=== PATIENT | female | born 1990 | race Caucasian/White ===

== ENCOUNTER 2017-06-13 17:23 | Emergency (ER) | payer SELFPAY ==
[2017-06-13 18:02] LABS: BILIRUBIN,URINE NEGATIVE (NEG); GLUCOSE,URINE NEGATIVE (NEG); NITRITE,URINE NEGATIVE (NEG); PH,URINE 7.5; PROTEIN,URINE NEGATIVE (NEG-TRACE); UROBILINOGEN,URINE 0.2 mg/dL (0.2 mg/dL)
[2017-06-13 18:12] LABS: BACTERIA,URINE FEW /HPF (0-FEW); RBC,URINE 0 /HPF (0-2); SQUAMOUS EPITHELIAL CELL,UR FEW /LPF; WBC,URINE 0 /HPF (0-4)
[2017-06-13 19:00] VITALS: BP 104/58
--- NOTE | 2017-06-13 20:34 | PHYS DOC ---
Past Medical History Past Medical History: No Pertinent History Past Surgical History: Oophorectomy, Tubal ligation, Other Additional Past Surgical Histo: ECTOPIC Alcohol Use: Occasionally Drug Use: None Adult General Chief Complaint Chief Complaint: TEST HPI HPI 27-year-old female with a prior history of 2 full-term deliveries as well as a prior ectopic which was treated surgically with unilateral salpingo- oophorectomy. Patient now presents to the emergency department because she was several days late for her menses., Which is unusual for her. Patient states he checked a home test that was positive twice that she came to the emergency department he only has one remaining fallopian tube and ovary by her description but that tube has a clamp on it from ligation. Patient's amount of bleeding and crampy pain is unremarkable however she is concerned about the positive test. Fevers chills sweats or shaking chills. Normal bowel bladder habits. No vaginal discharge other than mild bleeding consistent with menses, which is now resolved. Review of Systems Review of Systems Constitutional: Denies fever or chills [] Eyes: Denies change in visual acuity, redness, or eye pain [] HENT: Denies nasal congestion or sore throat [] Respiratory: Denies cough or shortness of breath [] Cardiovascular: No additional information not addressed in HPI [] GI: Denies abdominal pain, nausea, vomiting, bloody stools or diarrhea [] : Denies dysuria or hematuria [] Musculoskeletal: Denies back pain or joint pain [] Integument: Denies rash or skin lesions [] Neurologic: Denies headache, focal weakness or sensory changes [] Endocrine: Denies polyuria or polydipsia [] All other systems were reviewed and found to be within normal limits, except as documented in this note. Allergies Allergies Allergies Coded Allergies Type Severity Reaction Last Updated Verified latex Allergy Unknown 02/06/15 No Physical Exam Physical Exam Well-appearing patient no acute distress alert and communicative cooperative and appropriate. Benign abdomen no CVA tenderness nontender anterior pelvis. Constitutional: Well developed, well nourished, no acute distress, non-toxic appearance. [] HENT: Normocephalic, atraumatic, bilateral external ears normal, oropharynx moist, no oral exudates, nose normal. [] Eyes: PERRLA, EOMI, conjunctiva normal, no discharge. [] Neck: Normal range of motion, no tenderness, supple, no stridor. [] Cardiovascular:Heart rate regular rhythm, no murmur [] Lungs & Thorax: Bilateral breath sounds clear to auscultation [] Abdomen: Bowel sounds normal, soft, no tenderness, no masses, no pulsatile masses. [] Skin: Warm, dry, no erythema, no rash. [] Back: No tenderness, no CVA tenderness. [] Extremities: No tenderness, no cyanosis, no clubbing, ROM intact, no edema. [] Neurologic: Alert and oriented X 3, normal motor function, normal sensory function, no focal deficits noted. [] Psychologic: Affect normal, judgement normal, mood normal. [] Pelvic exam done with olga Chapa present. Normal external genitalia with no active bleeding. Normal vaginal mucosa with no discharge and no vaginal blood. Cervix abnormal appearing with multiple nodularities however no discharge or cervical motion tenderness and no bleeding. Nontender fundus and adnexa. Benign exam other than concerns about nodularity of cervix which were communicated to patient for follow-up with [facility] Current Patient Data Vital Signs Vital Signs Date Time Temp Pulse Resp B/P (MAP) Pulse Ox O2 Delivery O2 Flow Rate FiO2 06/13/17 19:00 78 104/58 (73) 99 Room Air 06/13/17 17:39 98.8 18 98.8 Lab Values Laboratory Tests Test 06/13/17 17:40 06/13/17 17:50 06/13/17 19:26 POC Urine HCG, Qualitative Hcg negative (Negative) Urine Collection Type Unknown Urine Color Yellow Urine Clarity Cloudy Urine pH 7.5 Urine Specific [place] 1.015 Urine Protein Negative mg/dL (NEG-TRACE) Urine Glucose (UA) Negative mg/dL (NEG) Urine Ketones (Stick) Negative mg/dL (NEG) Urine Blood Negative (NEG) Urine Nitrite Negative (NEG) Urine Bilirubin Negative (NEG) Urine Urobilinogen Dipstick 0.2 mg/dL (0.2 mg/dL) Urine Leukocyte Esterase Negative (NEG) Urine RBC 0 /HPF (0-2) Urine WBC 0 /HPF (0-4) Urine Squamous Epithelial Cells Few /LPF Urine Amorphous Sediment Present /HPF Urine Bacteria Few /HPF (0-FEW) Maternal Serum HCG Beta Subunit < 1 mIU/mL (0-5) EKG EKG [] Radiology/Procedures Radiology/Procedures [] Course & Med Decision Making Course & Med Decision Making Pertinent Labs and Imaging studies reviewed. (See chart for details) Signs and symptoms consistent with metromenorrhagia in a well-appearing patient with a benign pelvic exam. Patient concerned about discrepancy between her home test in our urine test which was negative. Reassured patient quantitative hCG was done in ED which was less than 1. Pelvic unremarkable except for some nodularity with what appeared to be a small mass of the cervix. Patient states this is normal for her since she had one of her deliveries were her cervix was injured however she understands the critical importance of close follow-up with [facility] for further evaluation Pap smear and biopsy if indicated. Case discussed with [facility] doctor on-call. He is aware the history and findings and agrees with outpatient follow-up for further workup of cervical abnormalities as indicated. [] Dragon Disclaimer Dragon Disclaimer This electronic medical record was generated, in whole or in part, using a voice recognition dictation system. Departure Departure Impression: Primary Impression: Metrorrhagia Additional Impression: Mass of cervix Disposition: HOME, SELF-CARE Condition: GOOD Referrals: NO PCP (PCP) HENRY LAMA DO Patient Instructions: Metrorrhagia Additional Instructions: It appears that you're having a menstrual cycle with abnormal timing. This is called metromenorrhagia. It is common and not threatening unless the bleeding becomes extended and uncontrolley Your test from your urine as well as from your blood today were negative. You have some soft tissue abnormality with a mass of your cervix. As you pointed out during her previous you had some injury to your cervix and some bleeding so this mass may be normal for you. However, it's critically important that you follow-up with [facility] doctor Priti for reevaluation and to get a Pap smear and further workup and treatment including biopsy if this is indicated. Follow-up with your regular doctor as well and return immediately for new severe or worsening symptoms. Problem Qualifiers RADHA PANDEY MD Jun 13, 2017 20:34
== END 2017-06-13 20:46 | disposition home or self-care (01) ==
LOC: ER 17:23
DX: Z32.02 Encounter for pregnancy test, result negative (principal); N92.1 Excessive and frequent menstruation with irregular cycle; N88.8 Other specified noninflammatory disorders of cervix uteri; Z90.721 Acquired absence of ovaries, unilateral; Z98.51 Tubal ligation status; Z91.040 Latex allergy status
CPT/HCPCS: 36415; 81001; 81025; 84702; 99284

== ENCOUNTER 2020-04-23 15:26 | Emergency (ER) | payer MEDICAID ==
[~2020-04-23] VITALS: Ht 175.3 cm; Wt 59.0 kg
[2020-04-23 16:13] VITALS: BP 117/69
[2020-04-23 16:54] LABS: BASO % 1 % (0-3); EOS # 0.1 x10^3/uL (0.0-0.7); EOS % 2 % (0-3); HEMATOCRIT 38.5 % (36.0-47.0); LYMPH # 2.2 x10^3/uL (1.0-4.8); LYMPH % 30 % (24-48); MEAN CORPUSCULAR HEMOGLOBIN 31 pg (25-35); MEAN CORPUSCULAR HGB CONC 34 g/dL (31-37); MEAN CORPUSCULAR VOLUME 92 fL (79-100); MONO # 0.6 x10^3/uL (0.0-1.1); MONO % 9 % (0-9); NEUT # 4.3 x10^3/uL (1.8-7.7); NEUT % 59 % (31-73); PLATELET COUNT 238 x10^3/uL (140-400); RED BLOOD COUNT 4.19 x10^6/uL (3.50-5.40); RED CELL DISTRIBUTION WIDTH 13.4 % (11.5-14.5); WHITE BLOOD COUNT 7.3 x10^3/uL (4.0-11.0)
[2020-04-23 17:10] LABS: CALCIUM 9.2 mg/dL (8.5-10.1); CREATININE 0.8 mg/dL (0.6-1.0); GFR 83.7; POTASSIUM 3.8 mmol/L (3.5-5.1)
[2020-04-23 17:16] LABS: ALBUMIN 4.2 g/dL (3.4-5.0); ALBUMIN/GLOBULIN RATIO 1.3 (1.0-1.7); TOTAL BILIRUBIN 0.2 mg/dL (0.2-1.0); TOTAL PROTEIN 7.5 g/dL (6.4-8.2)
--- NOTE | 2020-04-23 17:21 | RAD ---
EXAM: OB <14 WKS W/TV 04/23/2020 3:50 PM INDICATION: Vaginal bleeding, . COMPARISON: None Technique: Grayscale and color Doppler ultrasound images of the pelvis were OB less than 14 weeks protocol FINDINGS: The uterus measures 8 x 7 x 5 cm. The endometrial stripe measures 6 cm in thickness. No evidence of intrauterine . No myometrial mass. The left ovary measures 3.5 x 2.2 x 1.9 cm. There is anechoic simple cyst measuring 1.9 cm and the left ovary. Normal blood flow to the left ovary. The right ovary is not visualized, likely technical. There is no adnexal mass or free fluid. IMPRESSION: 1. Normal uterus. No evidence of intrauterine at this time. 2. Nonvisualized right ovary. Electronically signed by: Brandi Ruiz MD (04/23/2020 5:18 PM) [id number]
[2020-04-23 17:25] LABS: BILIRUBIN,URINE NEGATIVE (NEG); CLARITY,URINE CLEAR; NITRITE,URINE NEGATIVE (NEG); PH,URINE 6.5 (<5.0-8.0); PROTEIN,URINE NEGATIVE (NEG-TRACE); UROBILINOGEN,URINE 0.2 mg/dL (0.2 mg/dL)
[2020-04-23 17:29] LABS: COLOR,URINE STRAW
[2020-04-23 17:30] LABS: BACTERIA,URINE 0 /HPF (0-FEW); RBC,URINE 0 /HPF (0-2); SQUAMOUS EPITHELIAL CELL,UR FEW /LPF; WBC,URINE 0 /HPF (0-4)
[2020-04-23 17:33] LABS: BARBITURATES NEG (NEG); BENZODIAZEPINES NEG (NEG); CANNABINOIDS NEG (NEG); COCAINE NEG (NEG); METHADONE NEG (NEG); OPIATES NEG (NEG); PHENCYCLIDINE NEG (NEG)
[2020-04-23 17:34] LABS: AMPHETAMINE/METHAMPHETAMINE NEG (NEG)
--- NOTE | 2020-04-23 17:40 | PHYS DOC ---
Past Medical History Past Medical History: Other Additional Past Medical Histor: Ectopic pregnancies Past Surgical History: Oophorectomy, Tubal ligation, Other Additional Past Surgical Histo: ECTOPIC Smoking Status: Current Every Day Smoker Alcohol Use: Occasionally Drug Use: None Social History Narrative: Pt. 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 Patient states she had 2+ test at home and started vaginal bleeding yesterday. Denies missing any of her cycles. She states she has history of an ectopic with removal of the left fallopian tube as well as clamping of the right fallopian tube. She is complaining of mild abdominal cramping and reports has history of endometriosis. Review of Systems: Review of Systems: Constitutional: Denies fever or chills. [] Eyes: Denies change in visual acuity. [] HENT: Denies nasal congestion or sore throat. [] Respiratory: Denies cough or shortness of breath. [] Cardiovascular: Denies chest pain or edema. [] GI: Reports vaginal denies abdominal pain in denies nausea, vomiting, bloody stools or diarrhea. [] : Denies dysuria. [] Musculoskeletal: Denies back pain or joint pain. [] Integument: Denies rash. [] Neurologic: Denies headache, focal weakness or sensory changes. [] Psychiatric: Denies depression or anxiety. [] Heart Score: Risk Factors: Risk Factors: DM, Current or recent (<one month) smoker, HTN, HLP, family history of CAD, obesity. Risk Scores: Score 0 - 3: 2.5% MACE over next 6 weeks - Discharge Home Score 4 - 6: 20.3% MACE over next 6 weeks - Admit for Clinical Observation Score 7 - 10: 72.7% MACE over next 6 weeks - Early Invasive Strategies Allergies: Allergies: Allergies Coded Allergies Type Severity Reaction Last Updated Verified latex Allergy Unknown 02/06/15 No Physical Exam: PE: Constitutional: Well developed, well nourished, no acute distress, non-toxic appearance. [] HENT: Normocephalic, atraumatic, bilateral external ears normal, oropharynx moist, no oral exudates, nose normal. [] Eyes: PERRLA, EOMI, conjunctiva normal, no discharge. [] Neck: Normal range of motion, no tenderness, supple, no stridor. [] Cardiovascular:Heart rate regular rhythm, no murmur [] Lungs & Thorax: Bilateral breath sounds clear to auscultation [] Abdomen: Bowel sounds normal, soft, no tenderness, no masses, no pulsatile masses. [] Pelvic exam-external pelvic appears normal, cervix is visualized, closed, no CMT, no adnexal tenderness, trace amount of bright red blood in the vaginal vault Skin: Warm, dry, no erythema, no rash. [] Back: No tenderness, no CVA tenderness. [] Extremities: No tenderness, no cyanosis, no clubbing, ROM intact, no edema. [] Neurologic: Alert and oriented X 3, normal motor function, normal sensory function, no focal deficits noted. [] Psychologic: Affect normal, judgement normal, mood normal. [] Current Patient Data: Labs: Laboratory Tests Test 04/23/20 16:34 04/23/20 17:12 04/23/20 17:22 White Blood Count 7.3 x10^3/uL (4.0-11.0) Red Blood Count 4.19 x10^6/uL (3.50-5.40) Hemoglobin 13.0 g/dL (12.0-15.5) Hematocrit 38.5 % (36.0-47.0) Mean Corpuscular Volume 92 fL (79-100) Mean Corpuscular Hemoglobin 31 pg (25-35) Mean Corpuscular Hemoglobin Concent 34 g/dL (31-37) Red Cell Distribution Width 13.4 % (11.5-14.5) Platelet Count 238 x10^3/uL (140-400) Neutrophils (%) (Auto) 59 % (31-73) Lymphocytes (%) (Auto) 30 % (24-48) Monocytes (%) (Auto) 9 % (0-9) Eosinophils (%) (Auto) 2 % (0-3) Basophils (%) (Auto) 1 % (0-3) Neutrophils # (Auto) 4.3 x10^3/uL (1.8-7.7) Lymphocytes # (Auto) 2.2 x10^3/uL (1.0-4.8) Monocytes # (Auto) 0.6 x10^3/uL (0.0-1.1) Eosinophils # (Auto) 0.1 x10^3/uL (0.0-0.7) Basophils # (Auto) 0.0 x10^3/uL (0.0-0.2) Maternal Serum HCG Beta Subunit 1 mIU/mL (0-5) Sodium Level 141 mmol/L (136-145) Potassium Level 3.8 mmol/L (3.5-5.1) Chloride Level 104 mmol/L (98-107) Carbon Dioxide Level 27 mmol/L (21-32) Anion Gap 10 (6-14) Blood Urea Nitrogen 14 mg/dL (7-20) Creatinine 0.8 mg/dL (0.6-1.0) Estimated GFR (Cockcroft-Gault) 83.7 BUN/Creatinine Ratio 18 (6-20) Glucose Level 70 mg/dL (70-99) Calcium Level 9.2 mg/dL (8.5-10.1) Total Bilirubin 0.2 mg/dL (0.2-1.0) Aspartate Amino Transferase (AST) 14 U/L (15-37) L Alanine Aminotransferase (ALT) 23 U/L (14-59) Alkaline Phosphatase 46 U/L (46-116) Total Protein 7.5 g/dL (6.4-8.2) Albumin 4.2 g/dL (3.4-5.0) Albumin/Globulin Ratio 1.3 (1.0-1.7) Ethyl Alcohol Level < 10 mg/dL (0-10) Urine Collection Type Unknown Urine Color Straw Urine Clarity Clear Urine pH 6.5 (<5.0-8.0) Urine Specific [place] <=1.005 (1.000-1.030) Urine Protein Negative mg/dL (NEG-TRACE) Urine Glucose (UA) Negative mg/dL (NEG) Urine Ketones (Stick) Negative mg/dL (NEG) Urine Blood Negative (NEG) Urine Nitrite Negative (NEG) Urine Bilirubin Negative (NEG) Urine Urobilinogen Dipstick 0.2 mg/dL (0.2 mg/dL) Urine Leukocyte Esterase Negative (NEG) Urine RBC 0 /HPF (0-2) Urine WBC 0 /HPF (0-4) Urine Squamous Epithelial Cells Few /LPF Urine Bacteria 0 /HPF (0-FEW) Urine Opiates Screen Neg (NEG) Urine Methadone Screen Neg (NEG) Urine Barbiturates Neg (NEG) Urine Phencyclidine Screen Neg (NEG) Urine Amphetamine/Methamphetamine Neg (NEG) Urine Benzodiazepines Screen Neg (NEG) Urine Cocaine Screen Neg (NEG) Urine Cannabinoids Screen Neg (NEG) Urine Ethyl Alcohol Neg (NEG) POC Urine HCG, Qualitative Hcg negative (Negative) Laboratory Tests 04/23/20 16:34 Laboratory Tests 04/23/20 16:34 Microbiology 04/23/20 Wet Prep - Final, Complete Vital Signs: Vital Signs Date Time Temp Pulse Resp B/P (MAP) Pulse Ox O2 Delivery O2 Flow Rate FiO2 04/23/20 16:00 98.4 71 16 111/62 (78) 98 Room Air 98.4 EKG: EKG: [] Radiology/Procedures: Radiology/Procedures: []PROCEDURE: OB <14 WKS W/TV EXAM: OB <14 WKS W/TV 04/23/2020 3:50 PM INDICATION: Vaginal bleeding, . COMPARISON: None Technique: Grayscale and color Doppler ultrasound images of the pelvis were OB less than 14 weeks protocol FINDINGS: The uterus measures 8 x 7 x 5 cm. The endometrial stripe measures 6 cm in thickness. No evidence of intrauterine . No myometrial mass. The left ovary measures 3.5 x 2.2 x 1.9 cm. There is anechoic simple cyst measuring 1.9 cm and the left ovary. Normal blood flow to the left ovary. The right ovary is not visualized, likely technical. There is no adnexal mass or free fluid. IMPRESSION: 1. Normal uterus. No evidence of intrauterine at this time. 2. Nonvisualized right ovary. Electronically signed by: Brandi Ruiz MD (04/23/2020 5:18 PM) [id number] DICTATED and SIGNED BY: BRANDI RUIZ MD DATE: 04/23/20 1718 Course & Med Decision Making: Course & Med Decision Making Pertinent Labs and Imaging studies reviewed. (See chart for details) This is a 30-year-old female patient presenting to the ED today concerned she could be . She has history of left fallopian tube removal as well as right fallopian tube is clamped. She had 2+ test at home. Urine hCG is negative here. Beta-hCG is less than 1. OB ultrasound unable to find an IUP. The rest of her labs are negative for any acute findings. Patient was reassured. Discharge to home. Jennifer Disclaimer: Jennifer Disclaimer: This electronic medical record was generated, in whole or in part, using a voice recognition dictation system. Departure Departure Impression: Primary Impression: Vaginal bleeding Additional Impression: Negative test Disposition: HOME, SELF-CARE Condition: STABLE Referrals: NO PCP (PCP) Follow-up with your [facility]ISTER or the provided HOISTER in 1 to 2 weeks JANELLE JOSHUA Jr, MD follow up in one week Patient Instructions: Uterine Bleeding, Dysfunctional Additional Instructions: Your urine test is negative, your beta-hCG is negative, your ultrasound was negative for . Follow-up with your own HOISTER or the provided HOISTER in 1 to 2 weeks Justicifation of Admission Dx: Justifications for Admission: Justification of Admission Dx: N/A NANCY MALONE APRN Apr 23, 2020 17:40
[2020-04-24 20:08] LABS: GC PROBE Negative (Negative)
== END 2020-04-23 19:10 | disposition home or self-care (01) ==
LOC: ER 15:26
DX: N93.9 Abnormal uterine and vaginal bleeding, unspecified (principal); R10.30 Lower abdominal pain, unspecified; F17.200 Nicotine dependence, unspecified, uncomplicated; F19.90 Other psychoactive substance use, unspecified, uncomplicated; Z98.51 Tubal ligation status; Z90.89 Acquired absence of other organs; Z98.890 Other specified postprocedural states
CPT/HCPCS: 36415; 76801; 76817; 80053; 80307; 81001; 81025; 84702; 85025; 86850; 86900; 86901; 87491; 87591; 99284; G0480; Q0111

== ENCOUNTER 2020-08-13 16:59 | Emergency (ER) | payer BC, MEDICAID, OTHER | END 2020-08-13 18:00 | disposition left against medical advice (07) | LOC: ER 16:59 | DX: J02.9 Acute pharyngitis, unspecified (principal); Z53.21 Procedure and treatment not carried out due to patient leaving prior to being seen by health care provider ==